=== PATIENT | male | born 1990 | race Two or more races ===

== ENCOUNTER 2017-10-18 23:29 | Emergency (ER) | payer OTHER ==
[~2017-10-18] VITALS: Ht 182.9 cm; Wt 63.5 kg
== END 2017-10-19 00:28 | disposition home or self-care (01) ==
LOC: ER 23:29
DX: F10.129 Alcohol abuse with intoxication, unspecified (principal); Z02.89 Encounter for other administrative examinations

== ENCOUNTER 2017-10-20 00:55 | Emergency (ER) | payer OTHER ==
[~2017-10-20] VITALS: Ht 172.7 cm; Wt 81.6 kg
[2017-10-20 01:36] VITALS: BP 134/88
== END 2017-10-20 08:48 | disposition home or self-care (01) ==
LOC: ER 00:55
DX: S40.011A Contusion of right shoulder, initial encounter (principal); S46.911A Strain of unspecified muscle, fascia and tendon at shoulder and upper arm level, right arm, initial encounter; V58.5XXA Driver of pick-up truck or van injured in noncollision transport accident in traffic accident, initial encounter; Y93.89 Activity, other specified; Y99.8 Other external cause status; Y92.410 Unspecified street and highway as the place of occurrence of the external cause
CPT/HCPCS: 73030